=== PATIENT | male | born 1975 | race Caucasian/White ===

== ENCOUNTER 2023-03-15 20:33 | Emergency (ER) | payer MEDICAID ==
[~2023-03-15] VITALS: Ht 180 cm; Wt 77.1 kg
[2023-03-15 20:56] VITALS: BP 161/102
[2023-03-15] MEDS ORDERED: HYDROcodone/APAP 7.5 MG/325 MG (LORTAB, LORCET PLUS) TABLET PO STA (22:04)
[2023-03-15] MEDS ORDERED: ACHD5005 PO (22:14)
--- NOTE | 2023-03-15 22:15 | ED Upper Extremity ---
General Chief Complaint: Upper Extremity Stated Complaint: VINAY ARM PAIN Nursing Triage Note: C/O BILATERAL ARM PAIN AFTER NEAR FALL FROM SEMI TRUCK. PT REPORTS GRABBING TRUCK AFTER SLIPPING C/O LEFT ARM PAIN FROM SHOULDER TO MID FOREARM X9 DAYS, LEFT ARM PAIN X7 DAYS. REPORTS HEARING A "POP" FROM LEFT SHOULDER. DIFFICULTY WITH RAISING LEFT ARM Source: patient Exam Limitations: no limitations History of Present Illness Date Seen by Provider: Mar 15, 2023 Time Seen by Provider: 22:10 Initial Comments Patient is a 47-year-old male who presents to ED with left arm pain. Patient states a week and a half ago he was trying to get into his semitruck when he slipped. Patient states he reached out with his left arm on a handle felt a sharp pain and pop to the left arm. Since then he has had decreased range of motion with any overhead movement. Denies of any numbness and tingling but pain that radiates from the left shoulder to the left wrist. Patient has attempted to stretch the arm without much improvement. Is been taken anti-inflammatories without much improvement. No previous injury. Denies of any obvious deformity of his bicep, tricep or shoulder. Denies of any neck pain, chest pain, shortness of breath, cough. No history of previous rotator cuff injury Allergies and Home Medications Allergies Coded Allergies: No Known Drug Allergies (Unverified , 03/15/23) Patient Home Medication List Home Medication List Reviewed: Yes Hydrocodone/Acetaminophen (Hydrocodone-Acetamin 5-325 mg) 5 Mg-325 Mg Tablet, 1 TAB PO Q4H PRN for PAIN-MODERATE (5-7) Prescribed by: MAE PEREZ on 03/15/23 8515 Review of Systems Constitutional: No chills, No diaphoresis EENTM: No ear pain, No blurred vision, No double vision Respiratory: No cough, No dyspnea on exertion Cardiovascular: No chest pain, No edema Gastrointestinal: No abdominal pain, No diarrhea, No nausea, No vomiting Genitourinary: No decreased output, No discharge Musculoskeletal: No back pain; joint pain, joint swelling, muscle pain Skin: No change in color, No change in hair/nails Past Lsulqdt-Gdmhsq-Zdmddo Hx Patient Social History Tobacco Use?: Yes Substance use?: No Alcohol Use?: No Pt feels they are or have been: No Immunizations Up To Date First/Initial COVID19 Vaccinat: NA Past Medical History Surgery/Hospitalization HX: DENIES Physical Exam Vital Signs Vital Signs - First Documented 03/15/23 20:56 Temp 36.9 Pulse 95 Resp 16 B/P (MAP) 161/102 (121) Pulse Ox 99 O2 Delivery Room Air Capillary Refill : Less Than 3 Seconds Height, Weight, BMI Height: '" Weight: lbs. oz. kg; 23.00 BMI Method: General Appearance: WD/WN, no apparent distress HEENT: PERRL/EOMI, normal ENT inspection, TMs normal, pharynx normal Neck: non-tender, full range of motion, supple Cardiovascular: regular rate, rhythm, no edema, no gallop, no JVD Respiratory: chest non-tender, lungs clear, normal breath sounds, no respiratory distress, no accessory muscle use Gastrointestinal: normal bowel sounds, non tender, soft, no organomegaly Back: normal inspection, no vertebral tenderness Shoulder: limited ROM (Limited passive and active range of motion left shoulder. Weakness with empty can test, speeds test. 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 Left anterior and lateral shoulder tenderness.), pain, soft tissue tenderness Elbow/Forearm: normal inspection, non-tender, no evidence of injury, Left Wrist: Yes normal inspection, Yes non-tender, Yes no evidence of injury Hand: normal inspection, non-tender, no evidence of injury Neurologic/Psychiatric: billing adjudicator II-XII nml as tested, no motor/sensory deficits, alert, normal mood/affect, oriented x 3 Skin: normal color, warm/dry Progress/Results/Core Measures Results/Orders My Orders Orders - DARYL PITTS Shoulder, Left, 3 Views (03/15/23 22:04) Hydrocodone/Apap 7.5/325 Tab (Lortab 7. (03/15/23 22:04) Vital Signs/I&O Blood Pressure Mean: 121 Departure Communication (PCP) Reviewed previous ER visits, H&P, lab testing. Differential diagnosis left shoulder fracture, left shoulder sprain. On exam limited active and passive range of motion. Neurovascular intact. 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 Does have some weakness with abduction and flexion. Bicep tendon appears to be intact. No tricep tendon tenderness. Left lateral shoulder and anterior shoulder tenderness. Concern for rotator cuff tear versus labrum tear versus muscular tear. X-ray was ordered which was negative for fracture. He received 1 dose of pain medication. He is neurovascular intact. Suggest range of motion exercises at home. Will discharge with anti-inflammatories. Would likely benefit with formal PT and further imaging with MRI. Provided work note. Return precaution were discussed such as worsening pain, weakness. Provided orthopedic outpatient follow-up Impression Primary Impression: Shoulder sprain Disposition: HOME, SELF-CARE Condition: Stable Departure-Patient Inst. Decision time for Depature: 22:13 Referrals: NO,LOCAL PHYSICIAN (PCP) Primary Care Physician ELIAN SMALLS MD Patient Instructions: Shoulder Sprain (DC) Add. Discharge Instructions: Recommend anti-inflammatories to help with pain and swelling. Range of motion exercises. Orthopedic outpatient follow-up. All discharge instructions reviewed with patient and/or family. Voiced understanding. Scripts Hydrocodone/Acetaminophen (Hydrocodone-Acetamin 5-325 mg) 5 Mg-325 Mg Tablet 1 TAB PO Q4H PRN for PAIN-MODERATE (5-7), #10 TAB Prov: DARYL PITTS 03/15/23 Work/School Note: Work Release Form Date Seen in the Emergency Department: Mar 15, 2023 Return to Work: Mar 19, 2023 DARYL PITTS Mar 15, 2023 22:15
--- NOTE | 2023-03-16 08:08 | Diagnostic Imaging Report ---
Indication: Left shoulder pain. AP, oblique, and transscapular views of the left shoulder obtained. No fracture or acute bony abnormality seen. Glenohumeral joint appears unremarkable. There is mild degenerative change of the AC joint. Impression: No acute abnormality of the left shoulder. Dictated by: Dictated on workstation # [id number]
== END 2023-03-15 22:45 | disposition home or self-care (01) ==
LOC: ER 20:36
DX: S43.402A Unspecified sprain of left shoulder joint, initial encounter (principal); Z28.310 Unvaccinated for COVID-19; W01.0XXA Fall on same level from slipping, tripping and stumbling without subsequent striking against object, initial encounter; X50.1XXA Overexertion from prolonged static or awkward postures, initial encounter
CPT/HCPCS: 73030